=== PATIENT | female | born 1985 | race Caucasian/White ===

== ENCOUNTER 2021-08-03 07:09 | Day surgery (SDC) | payer BC, SELFPAY ==
[2021-08-03 07:35] VITALS: BMI 26.2
[2021-08-03] MEDS ORDERED: hydrALAZINE 20 MG/ML VIAL SLOW IVP PRN (08:23)
[2021-08-03] MEDS ORDERED: Tamsulosin HCl 0.4 MG CAP PO SCH (08:24)
[2021-08-03] MEDS ORDERED: Lactated Ringer's 1,000 ML IV SCH (08:30)
[2021-08-03] MEDS ORDERED: Morphine 4 MG/ML VIAL SLOW IVP PRN (09:11)
== END 2021-08-03 09:58 | disposition home or self-care (01) ==
LOC: CSHLD/OP 07:09
PROVIDERS: ATTEND Obstetrics & Gynecology
DX: O99.891 Other specified diseases and conditions complicating pregnancy (principal); N20.0 Calculus of kidney; Z3A.28 28 weeks gestation of pregnancy; Z87.442 Personal history of urinary calculi; Z79.899 Other long term (current) drug therapy; Z98.890 Other specified postprocedural states; Z88.1 Allergy status to other antibiotic agents
CPT/HCPCS: 96360; 96375; 99283; J2270